=== PATIENT | female | born 1980 | race American Indian/Alaskan Native ===

== ENCOUNTER 2018-06-26 15:13 | Emergency (ER) | payer OTHER ==
[2018-06-26 15:21] VITALS: BP 150/89
[2018-06-26] MEDS ORDERED: ZOFRAN ODT PO ONE (15:46)
[2018-06-26] MEDS ORDERED: NORCO 5/325 PO ONE (15:46)
--- NOTE | 2018-06-26 15:54 | Emergency Department Report ---
ED Fever HPI - General Chief Complaint: Upper Respiratory Infection Stated Complaint: PAIN ALL OVER/FEVER/WHEEZING Time Seen by Provider: 06/26/18 15:42 - History of Present Illness Initial Comments: Mrs. Marshall is a 38 yo female history of asthma who presents with fever, headache, body aches wheezing cough. She has sore throat and ear pressure. Global headache. Nonproductive cough. She is taken TheraFlu. No relief of symptoms. Symptoms began 3 days ago. No sick contacts. Nonproductive cough. Severe fatigue and malaise. Feels dehydrated but has been able to tolerate several bottles of Gatorade. 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 denies: abdominal pain Neurological: headache. denies: weakness, numbness, paresthesias, confusion ED Past Medical Hx - Past Medical History Previous Medical History?: Yes Hx Asthma: Yes - Surgical History Past Surgical History?: No - Social History Smoking Status: Current Every Day Smoker Substance Use Type: None, Other - Medications Home Medications: Home Medications Medication Instructions Recorded Confirmed Last Taken Type HYDROcodone/APAP 5-325 [[place] 1 each PO Q4HR PRN #10 tablet 06/26/18 Unknown Rx 5/325] Ibuprofen 800 mg PO QID PRN #12 tablet 06/26/18 Unknown Rx Oseltamivir [Tamiflu] 75 mg PO BID 5 Days #10 cap 06/26/18 Unknown Rx Promethazine [Phenergan TAB] 25 mg PO Q6HR PRN #10 tab 06/26/18 Unknown Rx ED Physical Exam - General Limitations: No Limitations General appearance: alert, in no apparent distress - Head Head exam: Present: atraumatic, normocephalic - Eye Eye exam: Present: normal appearance - ENT ENT exam: Present: mucous membranes moist, TM's normal bilaterally - Neck Neck exam: Present: normal inspection, full ROM. Absent: tenderness, meningismus - Respiratory Respiratory exam: Present: normal lung sounds bilaterally. Absent: respiratory distress, wheezes, rales, rhonchi - Cardiovascular Cardiovascular Exam: Present: normal rhythm, tachycardia. Absent: systolic murmur, diastolic murmur, rubs, gallop - GI/Abdominal GI/Abdominal exam: Present: soft, normal bowel sounds. Absent: distended, tenderness, guarding, rebound - Extremities Exam Extremities exam: Present: normal inspection - Back Exam Back exam: Present: normal inspection - Neurological Exam Neurological exam: Present: alert, oriented X3 - Psychiatric Psychiatric exam: Present: normal affect, normal mood - Skin Skin exam: Present: warm, dry, intact, normal color. Absent: rash ED Course Vital Signs 06/26/18 15:19 Temperature 102.7 F H Pulse Rate 129 H Respiratory 18 Rate Blood Pressure 150/89 O2 Sat by Pulse 98 Oximetry ED Medical Decision Making - Medical Decision Making Clinical diagnoses of Anders with fever, muscle areas, malaise, headache, cough, sore throat, diarrhea. Prescribed Tamiflu, norco ibuprofen and promethazine Critical care attestation.: If time is entered above; I have spent that time in minutes in the direct care of this critically ill patient, excluding procedure time. ED Disposition Clinical Impression: Influenza Disposition: DC-01 TO HOME OR SELFCARE Is pt being admited?: No Does the pt Need Aspirin: No Condition: Stable Instructions: Influenza (ED) Prescriptions: HYDROcodone/APAP 5-325 [[place] 5/325] 1 each PO Q4HR PRN #10 tablet PRN Reason: Pain Ibuprofen 800 mg PO QID PRN #12 tablet PRN Reason: pain, headache Oseltamivir [Tamiflu] 75 mg PO BID 5 Days #10 cap Promethazine [Phenergan TAB] 25 mg PO Q6HR PRN #10 tab PRN Reason: Nausea Referrals: [facility] [Outside] - 3-5 Days
== END 2018-06-26 16:21 | disposition home or self-care (01) ==
LOC: ED 15:13
DX: J11.1 Influenza due to unidentified influenza virus with other respiratory manifestations (principal); J45.909 Unspecified asthma, uncomplicated; F17.200 Nicotine dependence, unspecified, uncomplicated
CPT/HCPCS: 99282; Q0162

== ENCOUNTER 2020-09-18 20:49 | Emergency (ER) | payer SELFPAY ==
--- NOTE | 2020-09-18 21:31 | Event Note ---
ED Screening Note Date of service: 09/18/20 Time: 21:29 ED Screening Note: 40-year-old female patient with remote history of alcohol use, pancreatitis, and previous thyroidectomy presents to the emergency department with complaints of left upper quadrant abdominal pain with associated nausea starting yesterday. Patient states current symptoms are reminiscent of prior pancreatitis flareups. Last menstrual period was 3 weeks ago. Tachycardic in triage. General: Awake, appropriately interactive, no acute distress. Neck: Supple. Full range of motion intact. Cardiovascular: Normal peripheral perfusion. Pulmonary: No respiratory distress. Patient is speaking normally without use of accessory muscles. Abdomen: Soft, nondistended. Epigastric and left upper quadrant tenderness without guarding, rigidity, or rebound. Skin: No apparent rashes or lesions. Neurological: No facial asymmetry. Speech is clear. Follows commands. Patient is alert and oriented. Musculoskeletal: Moves all four extremities spontaneously with normal range of motion. Psych: Cooperative. Appropriate mood and affect. I have greeted and performed a focused rapid initial assessment of this patient. A comprehensive ED assessment and evaluation of the patient, analysis of all test results, and completion of the medical decision-making process will be conducted by additional ED providers. This initial assessment/diagnostic orders/clinical plan/treatment(s) is/are subject to change based on patients health status, clinical progression and re-assessment. Further treatment and workup at subsequent clinical provider's discretion. Patient/guardian urged not to elope from the ED as their condition may be serious if not clinically assessed and managed.
[2020-09-18 22:02] LABS: Basophils # (Auto) 0.1 K/mm3 (0.0-0.1); Basophils % (Auto) 0.7 % (0.0-1.8); Eosinophils # (Auto) 0.1 K/mm3 (0.0-0.4); Eosinophils % (Auto) 0.9 % (0.0-4.3); Hemoglobin 12.6 gm/dl (10.1-14.3); Lymphocytes # (Auto) 2.8 K/mm3 (1.2-5.4); Lymphocytes % (Auto) 37.5 % (13.4-35.0); Mean Corpuscular HGB Conc 33 % (30-34); Mean Corpuscular Volume 95 fl (79-97); Monocytes # (Auto) 0.8 K/mm3 (0.0-0.8); Platelet Count 225 K/mm3 (140-440)
[2020-09-18 22:04] LABS: Alanine Aminotransferase 20 units/L (7-56); Albumin 4.1 g/dL (3.9-5); BUN/Creatinine Ratio 15; Blood Urea Nitrogen 12 mg/dL (7-17); Calcium 8.6 mg/dL (8.4-10.2); Hemolysis Index 15
[2020-09-18 22:07] LABS: Bilirubin,Urine NEG (Negative); Blood,Urine NEG (Negative); Color,Urine Yellow (Yellow); Mucus,Urine FEW /HPF; Protein,Urine <15 mg/dL mg/dL (Negative); Urobilinogen,Urine < 2.0 mg/dL (<2.0)
[2020-09-18 22:08] LABS: Red Cell Distribution Width 21.9 % (13.2-15.2)
[2020-09-18 22:12] LABS: INR 1.03 (0.87-1.13)
[2020-09-18 22:13] LABS: Partial Thromboplastin Time 27.7 Sec. (24.2-36.6)
--- NOTE | 2020-09-19 00:26 | Emergency Department Report ---
ED General Adult HPI - General Chief complaint: Abdominal Pain Stated complaint: LEFT SIDE PAIN/HEADACHE Time Seen by Provider: 09/18/20 23:48 Source: patient Mode of arrival: Ambulatory Limitations: No Limitations - History of Present Illness Initial comments: 40-year-old female patient with remote history of alcohol use, pancreatitis, and previous thyroidectomy presents to the emergency department with complaints of left upper quadrant abdominal pain with associated nausea starting yesterday. Patient states current symptoms are reminiscent of prior pancreatitis flareups. Last menstrual period was 3 weeks ago. No current steroid or antibiotic use. No known sick contacts. Denies fever, vomiting, vaginal bleeding, vaginal discharge, diarrhea, constipation, rectal bleeding, hematuria. Denies all other complaints at this time. - Related Data Previous Rx's Medication Instructions Recorded Last Taken Type HYDROcodone/APAP 5-325 [[place] 1 each PO Q4HR PRN #10 tablet 06/26/18 Unknown Rx 5/325] Ibuprofen [Ibuprofen 800] 800 mg PO QID PRN #12 tablet 06/26/18 Unknown Rx Oseltamivir [Tamiflu] 75 mg PO BID 5 Days #10 cap 06/26/18 Unknown Rx Promethazine [Phenergan] 25 mg PO Q6HR PRN #10 tab 06/26/18 Unknown Rx Ondansetron [Zofran Odt] 4 mg PO Q6H PRN #20 tab.rapdis 09/19/20 Unknown Rx Sulfamethoxazole/Trimethoprim 1 each PO BID 14 Days tablet 09/19/20 Unknown Rx [Bactrim DS TAB] Allergies Allergy/AdvReac Type Severity Reaction Status Date / Time No Known Allergies Allergy Unverified 06/26/18 15:21 ED Review of Systems ROS: Stated complaint: LEFT SIDE PAIN/HEADACHE Other details as noted in HPI Other: GENERAL: Negative for fever, chills, weight change, anorexia, fatigue. ENT: Negative for ear pain, difficulty hearing, sore throat, nasal congestion, epistaxis. CARDIOVASCULAR: Negative for chest pain, palpitations, lower extremity swelling. PULMONARY: Negative for cough, dyspnea, wheezing, orthopnea, cyanosis. GASTROINTESTINAL: Positive for abdominal pain and nausea. MUSCULOSKELETAL: Negative for joint pain, joint swelling, myalgias, back pain, neck pain. NEUROLOGICAL: Negative for headache, seizure, syncope, paresthesias, weakness. INTEGUMENTARY: Negative for erythema, rash, diaphoresis, laceration, ecchymosis. HEMATOLOGICAL: Negative for hemoptysis, hematemesis, hematochezia, hematuria. PSYCHIATRIC: Negative for hallucinations, suicidal ideation, homicidal ideation, anxiety, depression. ED Past Medical Hx - Past Medical History Previous Medical History?: Yes Hx Asthma: Yes Additional medical history: Pancreatitis - Surgical History Past Surgical History?: Yes Additional Surgical History: Thyroidectomy - Social History Smoking Status: Current Every Day Smoker Substance Use Type: None - Medications Home Medications: Home Medications Medication Instructions Recorded Confirmed Last Taken Type HYDROcodone/APAP 5-325 [[place] 1 each PO Q4HR PRN #10 tablet 06/26/18 Unknown Rx 5/325] Ibuprofen [Ibuprofen 800] 800 mg PO QID PRN #12 tablet 06/26/18 Unknown Rx Oseltamivir [Tamiflu] 75 mg PO BID 5 Days #10 cap 06/26/18 Unknown Rx Promethazine [Phenergan] 25 mg PO Q6HR PRN #10 tab 06/26/18 Unknown Rx Ondansetron [Zofran Odt] 4 mg PO Q6H PRN #20 tab.rapdis 09/19/20 Unknown Rx Sulfamethoxazole/Trimethoprim 1 each PO BID 14 Days tablet 09/19/20 Unknown Rx [Bactrim DS TAB] ED Physical Exam - General Limitations: No Limitations - Other Other exam information: General: Awake and alert. No acute distress. Head: Atraumatic, normocephalic. Eyes: EOMI. Pupils are equal and round. Normal sclera and conjunctiva. ENT: Oral mucosa is moist. Normal pharyngeal exam. Neck: Supple. No lymphadenopathy. Pulmonary: No respiratory distress. Clear to auscultation bilaterally. Cardiac: Tachycardic. Pulses are palpable and equal bilaterally. No lower extremity cyanosis or edema. Skin: Warm and dry. No rashes. Abdomen: Soft, non-protuberant. Epigastric and left upper quadrant tenderness without guarding, rigidity, or rebound. Bowel sounds are normal. No organomegaly or masses noted. McBurney's point is nontender. Mckinney sign is negative. No flank ecchymosis. Back: Normal alignment. Left CVA tenderness. Extremities: Symmetrical. Full range of motion intact. Neurological: Alert and oriented, appropriately interactive, no focal deficits. Psych: Cooperative. Appropriate mood and affect. Speech is evenly metered. Thoughts are logically construed. ED Course Vital Signs 09/18/20 09/19/20 21:22 00:41 Temperature 98.7 F Pulse Rate 105 H 88 Respiratory 18 16 Rate Blood Pressure 144/102 Blood Pressure 134/76 [Left] O2 Sat by Pulse 99 100 Oximetry ED Medical Decision Making - Lab Data Result diagrams: 09/18/20 21:34 09/18/20 21:34 - Medical Decision Making Differential diagnosis including but not limited to: cholecystitis, ch olelithiasis, pancreatitis, peptic ulcer disease, aortic aneurysm/dissection, pyelonephritis, nephrolithiasis, urinary tract infection, ectopic , ovarian cyst/torsion On reevaluation, patient remains stable. No vomiting in the emergency department. Tachycardia resolved without intervention. Labs are unremarkable. test is negative. Urinalysis consistent with urinary tract i nfection; in the setting of nausea, tachycardia, and (+) left CVA tenderness, patient will be treated with a 14-day course of Bactrim for uncomplicated left pyelonephritis. She is afebrile, hemodynamically stable, no leukocytosis, normal renal function, tolerating oral intake without difficulty, urinating without difficulty. Low clinical suspicion for concomitant obstructive process; no clinical indication for further diagnostic work-up, such as CT scan, at this time. Imaging may be reconsidered on re-evaluation if symptoms worsen or evolve. Patient expressed understanding and is agreeable to outpatient management. Strict return precautions provided. Repeat exam is unremarkable and benign. History, exam, diagnostic testing, and current condition do not suggest worrisome pathology to warrant further testing, continued ED treatment, admission, or surgical evaluation at this point. Given the low probability of a significant medical illness, it would be more likely to result in harm than benefit to perform further testing at this stage. Discussed findings, presumptive diagnosis, need for follow-up and specific signs/symptoms that should prompt immediate return to the emergency department. Instructions were explained in detail to the patient in addition to giving written discharge information. Patient expressed understanding and was given the opportunity to ask questions, all of which were satisfactorily answered prior to discharge home. Critical care attestation.: If time is entered above; I have spent that time in minutes in the direct care of this critically ill patient, excluding procedure time. ED Disposition Clinical Impression: Pyelonephritis Disposition: DC-01 TO HOME OR SELFCARE Is pt being admited?: No Does the pt Need Aspirin: No Condition: Stable Instructions: Pyelonephritis, Adult, Abdominal Pain (ED) Additional Instructions: Take Bactrim with food as directed. Increase your dietary intake of probiotic rich foods while taking this medication. Take Zofran as directed for nausea/vomiting. Take Tylenol every 4 hours and Motrin every 8 hours as needed for pain. Follow-up with primary care provider this week. Call tomorrow to schedule an appointment. See referral information below. Return to the emergency department immediately for new or worsening symptoms. Specifically, return to the emergency department immediately for fever, vomiting, increased pain, difficulty urinating, rash, or any other concerns. Prescriptions: Sulfamethoxazole/Trimethoprim [Bactrim DS TAB] 1 each PO BID 14 Days tablet Ondansetron [Zofran Odt] 4 mg PO Q6H PRN #20 tab.rapdis PRN Reason: Nausea Referrals: PRIMARY MD TRINY [Primary Care Provider] - 3-5 Days BRENNAN PAGAN MD [Staff Physician] - 3-5 Days Forms: Work/School Release Form(ED) Time of Disposition: 00:25
[2020-09-19 00:42] VITALS: BP 134/76
== END 2020-09-19 00:42 | disposition home or self-care (01) ==
LOC: ED 20:49
DX: N12 Tubulo-interstitial nephritis, not specified as acute or chronic (principal); J45.909 Unspecified asthma, uncomplicated; F17.200 Nicotine dependence, unspecified, uncomplicated; Z79.899 Other long term (current) drug therapy
CPT/HCPCS: 36415; 80053; 80320; 81001; 83690; 83735; 84703; 85025; 85610; 85730; 87086; 99283; G0480

== ENCOUNTER 2020-11-20 11:34 | Emergency (ER) | payer SELFPAY ==
--- NOTE | 2020-11-20 15:37 | Emergency Department Report ---
ED General Adult HPI - General Chief complaint: Chest Pain Stated complaint: CHEST PAIN/DIFFICULTY BREATHING Time Seen by Provider: 11/20/20 11:37 Source: patient Mode of arrival: Ambulatory Limitations: No Limitations - History of Present Illness Initial comments: 40-year-old female patient with history of tobacco use presents emergency department with complaints of sore throat, hoarseness, and nonproductive cough with associated chest discomfort starting last night. 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 Symptoms are somewhat reminiscent of prior upper respiratory infections. No known sick contacts. No current steroid or antibiotic use. No recent travel. Patient has not received her COVID-19 vaccination series. No medications prior to arrival. No known history of heart or lung disease. Patient does not have a history of hypertension, hyperlipidemia, or diabetes. She is currently on her menstrual cycle. Denies fever, chills, wheezing, hemoptysis, nausea, vomiting, diaphoresis, lower extremity pain/swelling, syncope. Denies all other complaints at this time. - Related Data Previous Rx's Medication Instructions Recorded Last Taken Type HYDROcodone/APAP 5-325 [[place] 1 each PO Q4HR PRN #10 tablet 06/26/18 Unknown Rx 5/325] Ibuprofen [Ibuprofen 800] 800 mg PO QID PRN #12 tablet 06/26/18 Unknown Rx Oseltamivir [Tamiflu] 75 mg PO BID 5 Days #10 cap 06/26/18 Unknown Rx Promethazine [Phenergan] 25 mg PO Q6HR PRN #10 tab 06/26/18 Unknown Rx Ondansetron [Zofran Odt] 4 mg PO Q6H PRN #20 tab.rapdis 09/19/20 Unknown Rx Sulfamethoxazole/Trimethoprim 1 each PO BID 14 Days tablet 09/19/20 Unknown Rx [Bactrim DS TAB] Allergies Allergy/AdvReac Type Severity Reaction Status Date / Time No Known Allergies Allergy Unverified 06/26/18 15:21 ED Review of Systems ROS: Stated complaint: CHEST PAIN/DIFFICULTY BREATHING Other details as noted in HPI Other: GENERAL: Negative for fever, chills, weight change, anorexia, fatigue. ENT: Positive for sore throat and hoarseness CARDIOVASCULAR: Negative for chest pain, palpitations, lower extremity swelling. PULMONARY: Positive for shortness of breath and chest tightness. GASTROINTESTINAL: Negative for abdominal pain, nausea, vomiting, diarrhea, const ipation. MUSCULOSKELETAL: Negative for joint pain, joint swelling, myalgias, back pain, neck pain. NEUROLOGICAL: Negative for headache, seizure, syncope, paresthesias, weakness. INTEGUMENTARY: Negative for erythema, rash, diaphoresis, laceration, ecchymosis. HEMATOLOGICAL: Negative for hemoptysis, hematemesis, hematochezia, hematuria. PSYCHIATRIC: Negative for hallucinations, suicidal ideation, homicidal ideation, anxiety, depression. ED Past Medical Hx - Past Medical History Hx Asthma: Yes Additional medical history: Pancreatitis - Surgical History Additional Surgical History: Thyroidectomy - Social History Smoking Status: Current Every Day Smoker - Medications Home Medications: Home Medications Medication Instructions Recorded Confirmed Last Taken Type HYDROcodone/APAP 5-325 [[place] 1 each PO Q4HR PRN #10 tablet 06/26/18 Unknown Rx 5/325] Ibuprofen [Ibuprofen 800] 800 mg PO QID PRN #12 tablet 06/26/18 Unknown Rx Oseltamivir [Tamiflu] 75 mg PO BID 5 Days #10 cap 06/26/18 Unknown Rx Promethazine [Phenergan] 25 mg PO Q6HR PRN #10 tab 06/26/18 Unknown Rx Ondansetron [Zofran Odt] 4 mg PO Q6H PRN #20 tab.rapdis 09/19/20 Unknown Rx Sulfamethoxazole/Trimethoprim 1 each PO BID 14 Days tablet 09/19/20 Unknown Rx [Bactrim DS TAB] ED Physical Exam - General Limitations: No Limitations - Other Other exam information: General: Awake and alert. No acute distress. Head: Atraumatic, normocephalic. Eyes: EOMI. Pupils are equal and round. Normal sclera and conjunctiva. ENT: Oral mucosa is moist. Normal pharyngeal exam. Mild hoarseness. Neck: Supple. No lymphadenopathy. Pulmonary: No respiratory distress. Clear to auscultation bilaterally. Cardiac: Regular rate and rhythm. Pulses are palpable and equal bilaterally. No lower extremity cyanosis or edema. Skin: Warm and dry. No rashes. Abdomen: Soft, non-tender, non-protuberant. No guarding, rigidity, or rebound. Bowel sounds are normal. No organomegaly or masses noted. Back: Normal alignment. No CVA tenderness. Extremities: Symmetrical. Full range of motion intact. Neurological: Alert and oriented, appropriately interactive, no focal deficits. Psych: Cooperative. Appropriate mood and affect. Speech is evenly metered. Thoughts are logically construed. ED Course Vital Signs 11/20/20 12:04 Temperature 98.3 F Pulse Rate 85 Respiratory 18 Rate Blood Pressure 141/98 O2 Sat by Pulse 100 Oximetry ED Medical Decision Making - Lab Data Result diagrams: 11/20/20 15:36 11/20/20 15:36 - EKG Data 11/20/20 15:36 EKG shows normal sinus rhythm with a ventricular rate of 82 bpm. Normal axis. Normal QT interval. Normal MT interval. Good R wave progression. No ST segment changes. Over read by attending emergency physician, who agrees with this interpretation. - Medical Decision Making Differential diagnosis including but not limited to: pneumonia, viral upper respiratory infection, laryngitis, influenza, pertussis, pharyngitis, sinusitis On reevaluation, patient remains stable. No hypoxia, no respiratory distress. EKG and labs ordered by senior project controls specialist prior to medical screening examination within normal limits. Chest x-ray without acute process. Exceedingly low risk for acute coronary syndrome; repeat troponin testing is not indicated. History and exam findings suggestive of viral upper respiratory infection; no clinical indication for further diagnostic work-up on an emergent basis at this time. Patient will be discharged home with instructions for supportive care and referred to primary care provider for close outpatient follow-up. Patient expressed understanding and is agreeable to plan of care. Disease transmission precautions discussed. Strict return precautions provided. Repeat exam is unremarkable and benign. History, exam, diagnostic testing, and current condition do not suggest worrisome pathology to warrant further testing, continued ED treatment, admission, or surgical evaluation at this point. Given the low probability of a significant medical illness, it would be more likely to result in harm than benefit to perform further testing at this stage. Discussed findings, presumptive diagnosis, need for follow-up and specific signs/symptoms that should prompt immediate return to the emergency department. Instructions were explained in detail to the patient in addition to giving written discharge information. Patient expressed understanding and was given the opportunity to ask questions, all of which were satisfactorily answered prior to discharge home. Critical care attestation.: If time is entered above; I have spent that time in minutes in the direct care of this critically ill patient, excluding procedure time. ED Disposition Clinical Impression: Viral upper respiratory tract infection with cough Disposition: DC-01 TO HOME OR SELFCARE Is pt being admited?: No Does the pt Need Aspirin: No Condition: Stable Instructions: Viral Respiratory Infection, [id number] Additional Instructions: Take Tylenol every 4 hours and Motrin every 8 hours as needed for pain. Use salt water gargles and Cepacol lozenges as needed for sore throat. Honey is an excellent natural cough suppressant. Use [id number] cough/cold medications as needed for symptomatic relief. Rest. Drink plenty fluids. Wash hands frequently to prevent disease transmission. Do not share food or drinks with others. Follow-up with primary care provider this week. Call tomorrow to schedule an appointment. See referral information below. Return to the emergency department immediately for new or worsening symptoms. Referrals: BRENNAN PAGAN MD [Staff Physician] - 3-5 Days [facility] [Outside] - 3-5 Days [facility] [Outside] - 3-5 Days [facility] [Outside] - 3-5 Days [facility] [Provider Group] - 3-5 Days Forms: Work/School Release Form(ED) Time of Disposition: 17:28
[2020-11-20 16:31] LABS: Hematocrit 38.3 % (30.3-42.9); Hemoglobin 12.7 gm/dl (10.1-14.3); Mean Corpuscular HGB Conc 33 % (30-34); Mean Corpuscular Volume 95 fl (79-97); Platelet Count 223 K/mm3 (140-440); Red Blood Count 4.02 M/mm3 (3.65-5.03)
[2020-11-20 16:38] LABS: Red Cell Distribution Width 20.1 % (13.2-15.2)
[2020-11-20 16:51] LABS: Alanine Aminotransferase 19 units/L (7-56); Albumin 4.4 g/dL (3.9-5); Blood Urea Nitrogen 4 mg/dL (7-17); Calcium 9.1 mg/dL (8.4-10.2); Hemolysis Index 2
[2020-11-20 16:55] LABS: BUN/Creatinine Ratio 6
--- NOTE | 2020-11-20 17:22 | XRay Report ---
CHEST PA AND LATERAL VIEWS INDICATION: chest pain. COMPARISON: None. FINDINGS: Support devices: None. Heart: Within normal limits. Lungs/Pleura: No acute pulmonary or pleural findings. IMPRESSION: 1. No acute findings. Signer Name: Hernán Chandra MD Signed: 11/20/2020 5:17 PM Workstation Name: [id number]
[2020-11-20 17:33] LABS: Total Cells Counted 100
[2020-11-20 17:34] LABS: Anisocytosis 1+
[2020-11-20 17:50] VITALS: BP 122/92
--- NOTE | 2020-11-21 14:15 | Electrocardiograph Report ---
[facility] Test Date: 2020-11-20 Test Time: 12:14:37 Pat Name: GOMEZ SALMON Department: Room: Gender: F Handle Bender: DIMITRIS : 1980 Requested By: ED DOC Order Number: [id number] Reading MD: Kya Luther Measurements Intervals [place] Rate: 82 P: 43 MN: 177 QRS: 27 QRSD: 75 T: 19 QT: 361 QTc: 423 Interpretive Statements Sinus rhythm Consider anteroseptal infarct No previous ECG available for comparison Electronically Signed On 11-21-2020 14:14:49 EDT by Kya Luther
== END 2020-11-20 17:50 | disposition home or self-care (01) ==
LOC: ED 11:34
DX: J06.9 Acute upper respiratory infection, unspecified (principal); B97.89 Other viral agents as the cause of diseases classified elsewhere; J45.909 Unspecified asthma, uncomplicated; F17.200 Nicotine dependence, unspecified, uncomplicated; Z98.890 Other specified postprocedural states; Z79.899 Other long term (current) drug therapy
CPT/HCPCS: 36415; 71046; 80053; 84484; 84703; 85007; 85025; 93005; 99283